=== PATIENT | female | born 1990 | race Caucasian/White ===

== ENCOUNTER → 2022-01-18 11:31 | Outpatient (CLI) | payer OTHER, SELFPAY ==
--- NOTE | ~2022-01-18 | US_ITS ---
EXAMINATION: US OB <= 14 weeks fetus DATE: 01/18/2022 12:00 INDICATION: Uncertain gestational dates. Cramping. TECHNIQUE: Real-time transabdominal obstetric ultrasound. FINDINGS: No prior studies for comparison. The uterus measures 12.5 x 6 x 6.8 cm. There is an intrauterine gestational sac, with pole iden tified. The crown rump length measures 3.1 cm, which correlates with a estimated gestational age of 10 weeks 0 days. heart tones are identified measuring 171 BPM. The right ovary is not visuali zed. The left ovary is unremarkable measuring 2.2 x 1.4 x 1.8 cm. IMPRESSION: 1. SL IUP with an EGA of 10 weeks, 0 days (EDC by current ultrasound of 08/16/2022). Reviewed, dictated and finalized at location A. IMPRESSION: 1. SL IUP with an EGA of 10 weeks, 0 days (EDC by current ultrasound of 08/16/19).
== END ==
PROVIDERS: PCP Advanced Practice Midwife; Visit Provider Advanced Practice Midwife
DX: Z34.91 Encounter for supervision of normal pregnancy, unspecified, first trimester (principal); Z3A.10 10 weeks gestation of pregnancy
CPT/HCPCS: 76801

== ENCOUNTER → 2022-03-18 13:51 | Outpatient (CLI) | payer OTHER, SELFPAY ==
--- NOTE | ~2022-03-18 | US_ITS ---
EXAMINATION: US OB /maternal detail DATE: 03/18/2022 14:51 INDICATION: Second trimester anatomic survey TECHNIQUE: Real-time ultrasound of the pelvis was performed. COMPARISON: None. FINDINGS: There is a single living fetus in transverse lie. The placenta is posterior and 5.6 cm from the inter nal cervical os. The cervical length is 5.2 cm. heart rate is 151 beats per minute (bpm). Feta l cardiac activity and movement are noted. The amniotic fluid index is subjectively normal. The following anatomy was identified as normal: 4 chamber heart 3 vessel cord cord insertion kidneys urinary bladder stomach spine diaphragm ventricles cisterna magna cerebellum The following biometric data were obtained: Biparietal diameter (BPD): 4.4 cm; head circumference (HC): 15.6 cm; abdominal circumference (AC): 13 .5 cm; femur length (FL): 2.9 cm. These measurements are concordant. Estimated weight is 264 g +/- 39 g, which correlates with the 50th percentile when 08/13/2022 is used as estimated date of delivery. As single measurements, these parameters are each equal to the following estimated gestational ages w ith ranges of +/- 2 standard deviations: BPD: 19 weeks 3 days +/- 1 weeks 5 days. HC: 18 weeks 4 days +/- 1 weeks 3 days. AC: 18 weeks 6 days +/- 2 weeks 0 days. FL: 19 weeks 0 days +/- 1 weeks 6 days. estimated gestational age based solely on measurements from this exam is 19 weeks 0 days +/- 1 weeks 2 days. IMPRESSION: 1. Single living fetus in transverse lie. 2. Estimated weight is 264 g +/- 39 g, which correlates with the 50th percentile when 08/13/2022 is used as estimated date of delivery. Reviewed, dictated and finalized at location D. IMPRESSION: 1. Single living fetus in transverse lie. 2. Estimated weight is 264 g +/- 39 g, which correlates with the 50th per centile when 08/13/2022 is used as estimated date of delivery.
== END ==
PROVIDERS: PCP Advanced Practice Midwife; Visit Provider Advanced Practice Midwife
DX: Z36.89 Encounter for other specified antenatal screening (principal)
CPT/HCPCS: 76805

== ENCOUNTER 2022-06-06 18:17 | Observation (INO) | payer OTHER, SELFPAY ==
[2022-06-06 18:33] VITALS: BP 127/79; PULSE 100; BMI 39.9
--- NOTE | 2022-06-08 09:38 | PM.OBTRLD ---
OB - Triage/Final Diagnosis Visit Information Reason for evaluation: other (vaginal discharge) Comments/Additional reasons for admission: I have assessed the risk for this patient, Natasha Brantley, and determined that she would benefit from observation care.
== END 2022-06-06 19:05 | disposition home or self-care (01) ==
PROVIDERS: Admitting Provider Obstetrics & Gynecology Gynecology; Visit Provider Obstetrics & Gynecology Gynecology
DX: O26.893 Other specified pregnancy related conditions, third trimester (principal); N89.8 Other specified noninflammatory disorders of vagina; Z3A.30 30 weeks gestation of pregnancy
CPT/HCPCS: 59025; G0378; G0379

== ENCOUNTER → 2022-06-07 15:01 | Outpatient (CLI) | payer OTHER, SELFPAY ==
--- NOTE | ~2022-06-07 | US_ITS ---
EXAMINATION: US OB follow up DATE: 06/07/2022 15:25 INDICATION: Size greater than dates. TECHNIQUE: Real-time transabdominal obstetric ultrasound. FINDINGS: Comparison to multiple prior studies sequentially, with oldest reviewed study dated 022. There is a single living fetus in vertex presentation. The placenta is posterior without placenta pr evia. cardiac activity and movement is noted with a heart rate of 163 beats per minute. T he amniotic fluid volume is normal. DIOR measures 14.6 cm. The following biometric data were obtained: BPD: 7.7mm corresponds to gestational age 30 weeks 6 days. Head circumference: 283mm corresponds to gestational age 31 weeks 0 days. Abdominal circumference: 263mm corresponds to gestational age 30 weeks 3 days. Femur length: 56mm corresponds to gestational age 29 weeks 3 days. Estimated weight: 1526grams +/- 229grams 29.1%.] IMPRESSION: 1. Single living intrauterine fetus in vertex presentation with an estimated gestational age of 30 w eeks 3 days by inititial dates. Appropriate interval growth. 2. Normal placenta. Reviewed, dictated and finalized at location A. TH AND SAFETY TECHNICIAN IMPRESSION: 1. Single living intrauterine fetus in vertex presentation with an estimated g estational age of 30 weeks 3 days by inititial dates. Appropriate interval fet al growth. 2. Normal placenta.
== END ==
PROVIDERS: PCP Advanced Practice Midwife; Visit Provider Advanced Practice Midwife
DX: O36.63X0 Maternal care for excessive fetal growth, third trimester, not applicable or unspecified (principal)
CPT/HCPCS: 76816

== ENCOUNTER 2022-08-13 15:36 | Inpatient (IN) | payer BC, SELFPAY ==
[2022-08-13] VITALS (98 sets, daily range): BP systolic 104–143; BP diastolic 67–105; PULSE 70–106; TEMP 36.6; O2SAT 84–100; BMI 40.6
--- NOTE | 2022-08-13 16:53 | WPDOBADMIT ---
Obstetrics - Admit Note Admission Note: record reviewed. No pertinent additions to the history and/or any subsequent changes in the physical findings that are not consistent with the expected course of the were found. Additions to the history and/or subsequent changes in the physical findings follow. None.
--- NOTE | 2022-08-13 16:53 | PM.OBPNLAB ---
Pain Control Date/time seen: 08/13/22 16:53 Pain control: tolerating well Comments: Having ctx q 3-4 minutes, increasing in intensity. Pelvic Exam Comments: 2-3 cm on last RN exam. Pt was 1cm in office yesterday. Contractions Monitor mode: External Contraction frequency: 3 Contraction pattern: Regular Contraction phase: Contraction Contraction intensity: Moderate Status status: Category l Comments: Baseline 135. Moderate variability with accelerations. Assessment and Plan Comments: Pt appears to be in early labor. Tolerating contractions well. Offered amniotomy and pt declines at this time. Plan for repeat SVE in one hour. Anticipate vaginal . Dr. Kraft updated on pt's progress.
--- NOTE | 2022-08-13 17:10 | LDADM ---
This patient, Natasha Brantley, was admitted to Labor/Delivery/Recovery 108 on 08/13/22 at 15:36. Plans for labor, pain management and were discussed with patient. Patient/family oriented to hospital policies and general routines including ID bracelet, bed and alarms, visiting hours, pain management, procedures, bathroom and other care routines, personal items, smoking policy, room service/diet and guest tray routines, security routines, and visiting hours. Patient/Family are encouraged to report perceived risks to care and to ask questions if they do not understand what they are told or what they should do. See OBIX for further documentation.
--- NOTE | 2022-08-13 17:19 | P.PNAN_ITS ---
Anes - Initial Pre Proc Eval Procedure: labor epidural Date/Time: 08/13/22 17:19 Surgeon: Tracey Kraft MD Pre Op Diagnosis: labor pain Pre Op Diagnosis: Labor Patient Data Age: 31 Gender: F Height: 1.6 m Weight: 104 kg Last Vital Signs O2 Del Method Room Air 08/13/22 17:09 Allergies Allergy/AdvReac Type Severity Reaction Status Date / Time No Known Allergies Allergy Verified 07/22/22 14:40 Home Medications Medication Instructions Recorded Confirmed Type bupropion HCl 150 mg tablet,12 hr 150 mg PO DAILY 07/22/22 07/22/22 History sustained-release cholecalciferol (vitamin D3) 1,250 1,250 mcg PO WEEKLY 07/22/22 07/22/22 History mcg (50,000 unit) tablet famotidine 20 mg tablet (Pepcid) 20 mg PO DAILY 07/22/22 08/13/22 History ferrous sulfate 325 mg (65 mg 325 mg PO BID 07/22/22 07/22/22 History iron) tablet prenat.vits,katie,efa-dlso-izpre 1 tablet PO DAILY 07/22/22 07/22/22 History Patient hx anesthesia problems: none Family hx anesthesia problems: none Results Review: All pre-operative results and documents have been reviewed as part of the pre- operative evaluation. [facility] Past Medical History Medical History (Updated 08/13/22 @ 17:20 by Jonatan Ornelas DO) Anemia Anxiety Depression Psoriasis Social History Social History Smoking status: Never smoker Substance use: never Lack of Transportation: No Lack of Food: Never True Current Housing: I Have Housing Concerned About Future Housing: No Difficulty Paying Gas/Electric Bills: No Difficulty Paying for Meds: No Currently Unemployed: No Education: Master's Degree or Higher Difficulty w/ Childcare or Family Care: No Spiritual care concerns: No Anes - Eval Final PreProcedure Day of Procedure 08/13/22 17:19 Patient weight: morbidly obese ASA classification: III Anesthetic plan: proceed Anesthesia type and monitoring: regional epidural and standard monitoring Results Review: All pre-operative results and documents have been reviewed as part of the pre- operative evaluation. Informed Consent: The patient's anesthetic plan and its attendant risks and benefits were discussed with the patient/family/POA. Questions were solicited and answers provided to the satisfaction of the patient/family/POA.
[2022-08-13] MEDS: fentaNYL CITRATE INJ (*CRX) 100 MCG/2 ML VIAL 50 MCG IV PUSH (17:59)
[2022-08-13 18:03] LABS: Basophils Percent Auto 0.3 % (0.2-1.2); Eosinophils Absolute Auto 0.1 K/mm3 (0-0.3); Eosinophils Percent Auto 0.6 % (0-4.4); Hematocrit 38.8 % (37.0-47.0); Hemoglobin 12.8 g/dL (12.0-15.0); Immature Granulocyte Absolute 0.05 K/mm3 (0.00-0.031); Immature Granulocyte Percent A 0.4 % (0-0.5); Lymphocytes Absolute Auto 2.13 K/mm3 (0.9-3.2); Lymphocytes Percent Auto 16.4 % (18.3-44.2); Mean Corpuscular Volume 78.9 fl (80-100); Mean Platelet Volume 9.2 fl (7.4-10.4); Monocytes Absolute Auto 0.7 K/mm3 (0.1-0.6); Monocytes Percent Auto 5.7 % (2.6-8.5); Neutrophils Percent Auto 76.6 % (45.5-73.1); Platelet Count Result 280 k/mm3 (150-375); Red Blood Count 4.92 M/mm3 (4.2-5.4); Red Cell Distribution Width 14.1 % (11.5-14.5)
[2022-08-13] MEDS: LACTATED RINGERS 1,000 ML 999 ML IV CONT (18:45)
[2022-08-13] MEDS: LACTATED RINGERS 1,000 ML 125 ML IV CONT (19:58)
[2022-08-14] VITALS (297 sets, daily range): BP systolic 106–164; BP diastolic 59–123; PULSE 31–144; RESP 16–18; TEMP 36.1–37.7; O2SAT 84–100
[2022-08-14] MEDS: LACTATED RINGERS 1,000 ML 125 ML IV CONT ×2 (01:46→09:34)
--- NOTE | 2022-08-14 07:36 | PM.OBPNLAB ---
Pain Control Date/time seen: 08/14/22 07:30 Pain control: tolerating well and epidural Pelvic Exam Dilation (cm): 6 (6.5) Effacement (%): 80 station: -2 Amniotic membrane status: Ruptured Contractions Monitor mode: External Contraction pattern: Irregular Contraction phase: Contraction Contraction intensity: Moderate Status status: Category l Assessment and Plan Plan: begin patient augmentation Comments: Called and spoke with RN at 0540 this am. Pt had been 6-7cm with no change since last SVE. CNM recommended pitocin be started. CNM to bedside at 0720. Plan of care discussed with pt. Cat 1 tracing. Ctx q 8-10 minutes. Discussed lack of cerivcal change and the need for more contractions. Pt desires to reposition to left side for 30 minutes to see if ctx increase in frequency. If ctx have not increased in frequency by 0800, will start pitocin. Pt agreeable to this plan. Dr. Kraft updated on pt status.
[2022-08-14] MEDS: FAMOTIDINE 20 MG/2 ML VIAL IV PUSH (07:39)
[2022-08-14] MEDS: OXYTOCIN 30 UNITS/NS 500 ML 30 UNITS/500 ML BAG IV CONT (08:17)
[2022-08-14 09:52] LABS: Rapid Plasma Reagin Non-Reactive (NonReactive)
--- NOTE | 2022-08-14 10:38 | PM.OBPNLAB ---
Pain Control Date/time seen: 08/14/22 10:35 Pain control: tolerating well and epidural Pelvic Exam Dilation (cm): 8 (6.5) Effacement (%): 90 station: -1 Amniotic membrane status: Ruptured Contractions Monitor mode: External Contraction pattern: Irregular Contraction phase: Contraction Contraction intensity: Moderate Status status: Category ll Comments: Recent prolonged FHT deceleration. Tracing with normal baseline and moderate variability now. Assessment and Plan Comments: Discussed plan of care with Natasha. Recommend IUPC to better facilitate pitocin titration. Pt agreeable. IUPC inserted and returned with clear amniotic fluid. Anticipate vaginal .
[2022-08-14] MEDS: ACETAMINOPHEN 500 MG TABLET 1000 MG PO (12:18)
[2022-08-14] MEDS: OXYTOCIN 30 UNITS/NS 500 ML 30 UNITS/500 ML BAG 125 UNITS IV CONT (18:12)
--- NOTE | 2022-08-14 18:23 | W.PM.PROC2 ---
Procedure Note - Detailed Date of Procedure 08/14/22 Pre-op Diagnosis partial 3rd degree laceration Post-op Diagnosis Same Procedure Performed laceration repair Surgeon Tracey Kraft MD Anesthesia Local and Epidural Findings partial 3rd degree laceration Description of Procedure I was called by the RN to evaluate for possible third-degree laceration during delivery performed by Gloria Andujar. The right portion of the sphincter appears to be partially torn and retracted. The external skin incision extends to the anal verge but by rectal exam there is no rectal mucosa involved. The 1% lidocaine is injected along the skin edges and into the sphincter. The retracted portion of the right sphincter was grasped with an Allis clamp and incorporated into the visible fascia anteriorly. The left sphincter was grasped with an Allis clamp. The sphincter was reinforced with 4 sutures of 0 Vicryl in an interrupted manner. The vaginal and perineal laceration was closed using 3-0 Vicryl in the usual manner. Estimated Blood Loss 25 Drains No Packing No Pathology None sent Complications No immediate complications Condition Stable Disposition Floor
--- NOTE | 2022-08-14 18:34 | P.PCNOB_ITS ---
OB - Delivery Note Procedure Delivery date: 08/14/22 Procedure: Induction method: None Delivery augmentation: Pitocin Delivery monitor: External FHT, External Uterine and Internal Uterine Route of delivery: Episiotomy description: None Laceration Description: Perineal - 3rd Degree Delivery repair: vicryl Specimen: No Quantitative Blood Loss (ml): 250 Anesthesia type: Epidural Disposition: Floor Narrative: Arrived in labor. Had spontaneous rupture of membranes on Labor and delivery. Progressed to 6-7 cm and had no further cervical change. Was augmented with Pi tocin and progressed to complete dilation. Began pushing with contractions. Patient pushed in multiple positions and eventually repositioned to hands and knees. She quickly brought the head to a crown and delivered in the straight OA position. There was good restitution followed by delivery of the anterior posterior shoulder. She was repositioned to low Shane's and if infant was placed skin to skin. After 3 minutes of life the cord was doubly clamped and cut. Cord blood and cord gases were obtained as well as a cord segment. There was spontaneous delivery of the placenta. A third-degree laceration was noted and Dr. Kraft was called for assistance. arrived and repaired the third- degree laceration. All delivery counts were correct. Patient is skin to skin with baby at the completion of this note. No infant weight available at this time. [place] Baby Date of : 08/14/22 Time of : 17:33 Weeks of gestation at delivery: 40 Infant gender: Male presentation: vertex position: Other (OA) Placenta delivery description: Spontaneous Cord Vessel Description: 3 Vessels, Clamped/Cut and Delayed Cord Clamping score one minute: 9 score five minutes: 9
--- NOTE | 2022-08-14 18:44 | PM.OBDSVD ---
DS: Admitting Diagnosis Discharge Date 08/16/2022 Admitting Diagnosis labor at term DS: Discharge Diagnosis Discharge Diagnosis (1) (normal spontaneous vaginal delivery): Code(s): O80 - Encounter for full-term uncomplicated delivery Status: Acute (2) Mother currently breast-feeding: Code(s): Z39.1 - Encounter for care and examination of lactating mother Status: Acute (3) Obstetric vaginal laceration with third degree perineal laceration: Code(s): O70.20 - Third degree perineal laceration during delivery, unspecified Status: Acute OB - DS: Summary OB Procedures : Ultrasound OB Procedures Intrapartum: Spontaneous Vag Delivery OB Procedures: : None Peripartum Data Delivery Method: Natural Vaginal Laceration Description: Vaginal - 3rd Degree Episiotomy description: None complications: none Status at Discharge Overall status at discharge: patient is progressing back to baseline Time Spent with Patient Time attestation: Total time spent providing and/or coordinating discharge services: DS: Data Data Completed and Pending Labs on day of discharge: Labs from last 24 hours 08/13/22 08/13/22 17:02 17:02 RPR Non-reactive Blood Type O Positive Antibody Screen Negative Discharge Plan Discharge Attending physician on discharge: Tracey Kraft Consulting providers: Jonatan Ornelas Discharging Clinician: Tracye Kraft Anticipated Discharge Date/Time: 08/16/22 07:46 Patient Disposition: Home, Self-Care Activity: may shower Diet: as tolerated Discharge Instructions: Continue taking your vitamin and any other supplements as previously directed (Examples: Iron, Vitamin D). You may take Tylenol 1000mg over the counter every 6 hours as needed for pain. Do not exceed 4000mg of Tylenol daily. You may continue using tucks pads and dermoplast spray if needed for a few more days. Dr. Kraft had also discussed with patient taking Naproxen as an option and the patient is aware of that plan. Education: Mom and Baby Guide Given to: Mother Follow-Up: Call your delivering provider's office for an appointment to be seen in: See OB in 1 week for blood pressure check and again in 6 weeks for post visit. Mom and baby should come to the [facility] for the follow-up appointment. Appointment Date/Time: August 19, 2022 at 11:00 am What to expect at your follow-up visit: Blood Pressure Check Call [phone] if you are unable to keep your appointment time. BREAST CARE: * Wear a snug supportive bra. * For engorgement discomfort: Breast Feeding: * Apply warm moist washcloths * Express milk as needed to relieve engorgement * Wear loose clothing * For sore nipples: * Identify correct latch-on * Apply warm moist washcloths before and after nursing * Air dry nipples after nursing * May apply Lansinoh cream to nipples EPISIOTOMY/PERINEAL CARE: * Until bleeding stops, use your oz bottle after urinating * Change your pad frequently throughout the day * You may take sitz baths several times a day (fill your bathtub with warm water and soak for 20 minutes.) Do NOT bathe in the water * No tub baths until seen by your physician - You may shower ACTIVITY: * Rest as much as possible. * Do not exercise or lift anything heavier than your baby (such as laundry or other children.) * Avoid stairs or driving as much as possible. * Do not put anything into the vagina. No douching, tampons, or sexual activity until seen by physician. NOTIFY PHYSICIAN IF YOU HAVE ANY QUESTIONS OR IF ANY OF THE FOLLOWING SYMPTOMS OCCUR: * If your episiotomy becomes red, swollen, or more painful than what you have experienced in the hospital. * If your vaginal bleeding becomes foul smelling. * If your vaginal bleeding becomes more
[2022-08-14] MEDS: LIDOCAINE HCL 1% PF 30 ML VIAL (18:59)
[2022-08-14] MEDS: ACETAMINOPHEN 325 MG TABLET 650 MG PO (19:16)
[2022-08-14] MEDS: WITCH HAZEL 40 PADS 1 PAD TOPICAL (20:13)
[2022-08-14] MEDS: BENZOCAINE 20% AER SPR (*SP) 56 GM CAN 1 SPRAY TOPICAL (20:13)
--- NOTE | 2022-08-14 20:45 | PC.NURSE ---
Report given to , RN
--- NOTE | 2022-08-14 20:52 | OBPPTRN ---
Patient transferred to post room #281 via W/C. Support person present. Oriented to unit, room, information board, rooming in, admission packet and security measures. Patient verbalizes understanding.
[2022-08-15] MEDS: HYDROcodone/acetaminophen (*CRX) 10-325 MG TABLET 1 TAB PO ×6 (04:10→21:35)
[2022-08-15 04:20] VITALS: BP 133/89; PULSE 81; RESP 18; TEMP 36.9; O2SAT 99
[2022-08-15 07:43] LABS: Hematocrit 32.1 % (37.0-47.0); Hemoglobin 10.3 g/dL (12.0-15.0)
[2022-08-15] MEDS: DOCUSATE SODIUM 100 MG CAPSULE PO ×2 (07:56→16:08)
--- NOTE | 2022-08-15 07:56 | PM.OBPNVD ---
OB - PN: Subj Subjective Date/time seen: 08/15/22 07:50 Patient comments: other (perineal pain) [place] baby status: doing well and nursing well [place] feeding status: exclusively breast feeding Narrative: Natasha reports nursing very well. Her bleeding is small, no clots. Minimal cramping. She is feeling moderate discomfort to her perineum that is not controlled with Tylenol alone. Getting [place] PRN OB - PN: Obj Data Labs 08/15/22 07:27 Labs: Laboratory Results - last 24 hr 08/13/22 08/15/22 17:02 07:27 Hgb 10.3 L Hct 32.1 L RPR Non-reactive OB - PN A/P Plan day: 1 Plan: routine care Time Spent With Patient Time: Total time spent is greater than 50% in coordination of care (as documented) at patient's floor/unit and/or counseling patient: Review of Systems Review of Systems: All systems reviewed & are unremarkable except as noted in HPI and below Exam Narrative: Alert and oriented. Mood is pleasant and cooperative. Urinating without difficulty. Denies passing any large clots. Perineum with minimal edema. Fundus firm and below umbilicus. Const: General: cooperative, healthy appearing, no acute distress and alert Orientation/consciousness: patient oriented x3 Limitations: no limitations Resp: Effort & Inspection: normal respiratory effort Auscultation: clear to auscultation bilaterally Cardio: Rate: regular rate GI: Inspection: normal to inspection Neuro: General: patient oriented x3 Extrem: General: normal to inspection Psych: Appearance: grossly normal Mental Status: mental status grossly normal Affect: normal affect Thought process: Normal thought process present
[2022-08-15] MEDS: FAMOTIDINE 20 MG TABLET PO (07:57)
[2022-08-15] MEDS: FERROUS SULFATE 324 MG TABLET PO ×2 (07:57→16:20)
[2022-08-15] MEDS: buPROPion HCL SR (12 HR) 150 MG TAB PO (07:58)
[2022-08-15] MEDS: MULTIVIT/MIN/PREN/FOL AC/IRON TABLET 1 TAB PO (07:58)
[2022-08-15] MEDS: KETOROLAC 30 MG/ML VIAL (*BKC) IV PUSH ×3 (07:59→21:35)
[2022-08-15 10:05] VITALS: BP 134/91; PULSE 86; RESP 17; TEMP 36.6; O2SAT 100
--- NOTE | 2022-08-15 10:39 | PC.NURSE ---
Addendum entered by Coty Hernandez RN 08/15/22 10:49: From [id number] Infant was stimulated to wake to breastfeed. RN returned at 0903 to check for or perform a blood sugar. Mother had independently latched at 0855 on the right breast. After five minutes had stopped so mother placed infant skin to skin. RN assisted mother with effectively on the left breast at 0905. Original Note: [id number] Introductions were made, then consulted with patient to assess needs related to . Mother led the conversation with her?plans to feed?her infant and the?experience so far. Resources provided for inpatient and outpatient services with mom/baby guide. Mother voiced understanding of information and requests assistance related to stimulating to wake and breastfeed. Infant is sleepy and reluctant to breastfeed, then has a stool after spoon feeding 1/4 tsp of colostrum. Circ care was given as this is the first stool since the circumcision. While changing the diaper the infant has copious amounts of meconium stool. Encouraged understanding of the benefits of skin to skin (demonstrating unwrapping and placing upright on her chest), stimulating with massage touch, hand expression, changing positions to encourage wakefulness, how to watch for early feeding cues, responsive feeding, feeding on demand (aiming for 8-12 times in 24 hours, about every 2-3 hours), milk production, building/maintaining a milk supply, duration of feeding, signs of adequate intake/output and how to record on the feeding sheet. Mother works well with her with encouragement and education. Reviewed positioning and ear, shoulder, hip alignment, supporting the breast to facilitate a deep latch, asymmetrical latch (off-center), leading with the chin with a big, open, wide gape and body close to mother. Infant latched optimally to the left breast in football position. Education given to mother of how to visualize suck/swallow ratios and listen for drinking at the breast. Infant was able to maintain latch without discomfort to mother with swallowing visualized and heard. Nipple care reviewed with optimal latch and good positioning. Reminding mother of comfort measures of healing with a warm and wet washcloth to rinse breast, then leave open to air-dry as needed. Reviewed good handwashing when or touching the breast/nipples to prevent infection. Resources used to facilitate learning were used with the [visual handouts/QR codes/ tool/mom and baby guide]. Mother voiced understanding of skin to skin, stimulating with massage touch, responsive feedings, hand expressed colostrum, talking to infant to encourage if it has been 2 -2.5 hours since the start of the last , to call if does not latch, or if there is discomfort with . Resources provided for inpatient/outpatient with the mom/baby guide. Mother voiced understanding of information, demonstrated learning and will call if there is a request for assistance. Reported to the primary RN.
[2022-08-15 12:00] VITALS: BP 128/83; PULSE 94; RESP 16; TEMP 37.2; O2SAT 98
[2022-08-15 16:10] VITALS: BP 134/89; PULSE 73; RESP 18; TEMP 36.6
[2022-08-15 21:35] VITALS: BP 141/84; PULSE 81; RESP 18; TEMP 36.9; O2SAT 97
[2022-08-16] MEDS: HYDROcodone/acetaminophen (*CRX) 10-325 MG TABLET 1 TAB PO ×3 (02:41→12:15)
--- NOTE | 2022-08-16 07:45 | PM.OBPNVD ---
OB - PN: Subj Subjective Date/time seen: 08/16/22 07:45 Patient comments: no complaints and pain well controlled baby status: doing well OB - PN: Obj Data Labs 08/15/22 07:27 OB - PN A/P Plan day: 2 Plan: routine care, discharge home, follow up 6 weeks and other (plans condoms for bc considering IUD) Comments: No PIH Sx. Time Spent With Patient Time: Total time spent is greater than 50% in coordination of care (as documented) at patient's floor/unit and/or counseling patient: Exam : Bimanual exam- vagina & uterus: other (Uterus firm, nt @U)
[2022-08-16] MEDS: KETOROLAC 30 MG/ML VIAL (*BKC) IV PUSH (07:50)
[2022-08-16] MEDS: buPROPion HCL SR (12 HR) 150 MG TAB PO (07:51)
[2022-08-16] MEDS: FAMOTIDINE 20 MG TABLET PO (07:51)
[2022-08-16] MEDS: MULTIVIT/MIN/PREN/FOL AC/IRON TABLET 1 TAB PO (07:51)
[2022-08-16] MEDS: DOCUSATE SODIUM 100 MG CAPSULE PO (07:51)
[2022-08-16 08:26] VITALS: BP 128/81; PULSE 73; RESP 18; TEMP 36.8; O2SAT 100
--- NOTE | 2022-08-16 10:30 | PC.NURSE ---
Per mother, unable to make follow up appointment @ [facility] on 08/17/22 @ 0800, appt changed to 08/19 @ 1100.
--- NOTE | 2022-08-16 10:58 | PC.NURSE ---
[id number] Mother led the conversation with her experience, plan to feed her so far and demonstrated her ability to independently latch infant optimally without discomfort to the left breast using football positioning without pain. Reminded parents to use good handwashing technique to prevent infection. Mother is feeding appropriately for growth of infant and understands stimulating infant to eat if needed. Infant has had appropriate feedings in the last 24 hours meets the outcomes for weight, output and jaundice at this time. Mother states she is confident to continue effectively breastfeed her at home, when to call for assistance and denies any additional assistance or education at this time. Reinforced understanding of milk production, transition of milk, signs of adequate intake, transition of stool, prevention/relief of engorgement, responsive watching for feeding cues, the different methods of stimulating to breastfeed 2-3 hours after the start of the last feeding, community resources, medication information reviewed per [employer] and when to call a provider using the resource of the mom and baby guide/[facility] website. Mother voiced understanding of the education shared. Reported to the primary RN.
--- NOTE | 2022-08-16 12:21 | PC.NURSE ---
Patient to view the discharge video [facility], The First Two Weeks online. Patient was given the opportunity and encouraged to ask questions. Patient verbalized understanding of information shared and has been given the mother/baby guide for home reference.
--- NOTE | 2022-08-16 13:00 | PC.NURSE ---
Patient had requested previously to be able to take her placenta home at discharge, consents signed prior to arrival to post floor. Placenta Release form was signed today at discharge and patient was given her placenta.
[2022-08-19 10:59] VITALS: BP 155/94; PULSE 72; RESP 18; TEMP 36.7; O2SAT 99
== END 2022-08-16 13:00 | disposition home or self-care (01) | DRG 768 ==
LOC: ANHLDR 08-14 18:46 → ANHOB2 08-16 07:47 → ANHLDR 08-19 10:15 → ANHOB2 08-19 10:15
PROVIDERS: Admitting Provider Obstetrics & Gynecology Gynecology; PCP Nurse Practitioner Family; Referring Provider Advanced Practice Midwife; Visit Provider Advanced Practice Midwife
DX: O99.344 Other mental disorders complicating childbirth (principal); Z37.0 Single live birth; O70.20 Third degree perineal laceration during delivery, unspecified; F32.A Depression, unspecified; F41.9 Anxiety disorder, unspecified; O36.8330 Maternal care for abnormalities of the fetal heart rate or rhythm, third trimester, not applicable or unspecified; Z3A.40 40 weeks gestation of pregnancy
CPT/HCPCS: 36415; 85014; 85018; 85025; 86592; 86850; 86900; 86901; A9270; J1885; J2590; J2795; J3010; J7120

== ENCOUNTER 2022-08-19 11:58 | Outpatient (CLI) | payer BC, SELFPAY ==
[2022-08-19 12:12] VITALS: BP 155/99; PULSE 68
[2022-08-19 12:30] VITALS: BP 164/95; PULSE 68
[2022-08-19 12:34] LABS: Basophils Percent Auto 0.2 % (0.2-1.2); Eosinophils Absolute Auto 0.2 K/mm3 (0-0.3); Eosinophils Percent Auto 2.2 % (0-4.4); Hematocrit 36.7 % (37.0-47.0); Hemoglobin 11.8 g/dL (12.0-15.0); Immature Granulocyte Absolute 0.05 K/mm3 (0.00-0.031); Immature Granulocyte Percent A 0.6 % (0-0.5); Lymphocytes Absolute Auto 1.96 K/mm3 (0.9-3.2); Lymphocytes Percent Auto 22.3 % (18.3-44.2); Mean Corpuscular HGB Conc 32.2 g/dl (32-36); Mean Corpuscular Hemoglobin 26.3 pg (26-34); Mean Corpuscular Volume 81.7 fl (80-100); Mean Platelet Volume 8.6 fl (7.4-10.4); Monocytes Absolute Auto 0.6 K/mm3 (0.1-0.6); Monocytes Percent Auto 6.4 % (2.6-8.5); Neutrophils Percent Auto 68.3 % (45.5-73.1); Platelet Count Result 319 k/mm3 (150-375); Red Blood Count 4.49 M/mm3 (4.2-5.4); White Blood Count 8.8 K/mm3 (4.5-10.0)
[2022-08-19 12:45] VITALS: BP 158/85; PULSE 61
[2022-08-19 12:48] LABS: Alanine Aminotransferase 24 U/L (6-35); Albumin Level 3.4 g/dL (3.5-5.1); Alkaline Phosphatase 122 U/L (38-126); Anion Gap 4 mmol/L (8-16); Aspartate Amino Transferase 27 U/L (14-36); Bilirubin,Total 0.6 mg/dL (0.2-1.3); Blood Urea Nitrogen 8 mg/dL (7-17); Calcium 8.8 mg/dL (8.4-10.2); Carbon Dioxide 28 mmol/L (22-30); Chloride 109 mmol/L (98-107); Estimated Glomerular Filt Rate > 60; Glucose 85 mg/dL (65-110); Potassium 4.2 mmol/L (3.4-5.0); Sodium 141 mmol/L (137-145); Uric Acid 5.3 mg/dL (2.5-7.5)
[2022-08-19 13:01] VITALS: BP 155/81; PULSE 59
--- NOTE | 2022-08-19 13:05 | PC.NURSE ---
1305 called Amber Andujar CNM reported BP and lab result. discharge order received with BP monitoring. follow up in two days
== END 2022-08-19 13:15 | disposition home or self-care (01) ==
LOC: ANHOBOP 12:03 → ANHOBPP 12:04
PROVIDERS: Advanced Practice Midwife; PCP Nurse Practitioner Family; Visit Provider Obstetrics & Gynecology Gynecology
DX: O99.891 Other specified diseases and conditions complicating pregnancy (principal); R03.0 Elevated blood-pressure reading, without diagnosis of hypertension
CPT/HCPCS: 36415; 80053; 84550; 85025; 99199

== ENCOUNTER → 2022-12-16 12:41 | Outpatient (CLI) | payer BC, SELFPAY ==
--- NOTE | ~2022-12-16 | US_ITS ---
EXAMINATION: US pelvic complete w TV DATE: 12/16/2022 13:26 INDICATION: Verify IUD placement Comparison:06/07/2022 TECHNIQUE: Multiple transabdominal and endovaginal sonographic images of the pelvis performed. FINDINGS: The uterus measures 4.4 x 2.7 x 3.5 cm. The endometrial complex measures 0.12 cm. The IUD i s not identified. The right ovary measures 2.7 x 1.1 x 2.3 cm and the left ovary is not visualized. There are follicula r changes in the right ovary. There is no free fluid in the pelvis. There are no abnormal masses seen on either side. IMPRESSION: 1. Unremarkable pelvic ultrasound. IUD not visualized. Reviewed, dictated and finalized at location []
== END ==
PROVIDERS: PCP Nurse Practitioner; Visit Provider Nurse Practitioner
DX: T83.32XA Displacement of intrauterine contraceptive device, initial encounter (principal)
CPT/HCPCS: 76830; 76856

== ENCOUNTER → 2022-12-18 07:40 | Outpatient (CLI) | payer BC, SELFPAY ==
--- NOTE | ~2022-12-18 | XR_ITS ---
XR abdomen/kub 1V 12/19/2022 11:42 INDICATION: Missing IUD strings. TECHNIQUE: KUB COMPARISON: No prior studies for comparison. FINDINGS: Bowel gas pattern is normal. There is an IUD present in the pelvis. There is no evidence of free air, mass, organomegaly, ascites or obstruction. Moderate colonic fecal loading. No abnormal ca lculi are seen. The bones appear intact. IMPRESSION: 1: No acute abdominal abnormality identified. Reviewed, dictated and finalized at location []
== END ==
PROVIDERS: PCP Obstetrics & Gynecology Gynecology; Visit Provider Obstetrics & Gynecology Gynecology
DX: T83.32XA Displacement of intrauterine contraceptive device, initial encounter (principal)
CPT/HCPCS: 74018

== ENCOUNTER 2022-12-30 00:11 | Day surgery (SDC) | payer BC, SELFPAY ==
[2022-12-25 15:50] VITALS: BMI 37.2
--- NOTE | 2022-12-25 15:54 | PC.NURSE ---
Report to the Outpatient Waiting Room, entrance under the green pavilion located off [facility], at time 1230 on date 12/30/22. Planned Procedure Time: 1430. Time changes happen often and if your time is changed the preop area will call you the afternoon before. - You and your visitor will be asked to self-screen and do not enter if you have any COVID symptoms. - A mask is optional within the hospital at this time. Patients may have clear liquids (water, carbonated beverages, clear teas, apple juice) until 3 hours prior to surgery with a maximum of 20 ounces. - No food from midnight until time of surgery Take the following medications with a SIP of water the morning of surgery: BUPROPION, ESCITALOPRAM DO NOT STOP ANY OF YOUR OTHER PRESCRIPTION MEDICATIONS PRIOR TO SURGERY ?EXCEPT THE FOLLOWING Medications to discontinue per physician: VITAMINS/SUPPLEMENTS Date to take last dose: 12/26/22 Please no make-up, nail greenlandic, hairspray, perfume, deodorant, or body powder the day of surgery. No jewelry (including any body piercings) or valuables the day of surgery, leave them at home. Please take a shower or bath the night before, or the morning of, surgery with an antibacterial soap. Wear comfortable, loose fitting clothing. - Jewelry must be removed prior to entering the operating room. Rings and piercings that are not removed may be cut off. - The hospital will not accept responsibility for valuables. - Please leave all valuables, including medications, at home the day of surgery. If you are going home after surgery, a licensed front end loader driver must drive you home. - NO public transportation without another adult if you receive anesthesia. - We recommend that an adult stay with you for 24 hours following discharge. - We also recommend that you do not drive, make important decision, drink alcoholic beverages, or take any drugs that were not prescribed by your health care provider for at least 24 hours after your discharge time. Follow any additional instructions given to you from your surgeon. If you or anyone in your household have experienced Covid symptoms in the past week, please notify your surgeon or the nurse liaison at the phone number below for possible testing. Telephone instructions given to PT - WILLAM GUZMÁN and asked if any additional questions and then verbalized understanding. Patient advised to call surgeon office or pre surgery nurse liaison [phone] if any additional questions.
[2022-12-30] VITALS (9 sets, daily range): BP systolic 99–128; BP diastolic 73–90; PULSE 52–87; RESP 10–18; TEMP 36.2; O2SAT 98–100
--- NOTE | 2022-12-30 09:33 | WPDHPUPDATE1 ---
History and Physical Update Update Date/Time: 12/30/22 09:33 History and Physical has been reviewed, including an updated exam of the patient. There are NO changes in the patient's condition. Risks, benefits, and alternatives have been discussed and questions answered. Patient agrees to proceed with procedure.
--- NOTE | 2022-12-30 09:33 | PM.HPGS ---
History of Present Illness History of Present Illness Consent: Risks, benefits, and alternatives have been discussed and questions answered. Patient agrees to proceed with procedure. Chief complaint: malpositioned IUD Narrative: Natasha Brantley is a 32 year old female with a malpositioned IUD. Patient presented for her 6 week follow-up and no IUD strings were found. Pelvic ultrasound does not show an obvious IUD in the endometrium. KUB was performed and the IUD was noted in the pelvis. It was recommended to proceed with hysteroscopic evaluation to see if IUD is in the endometrium and if present to remove it. If the IUD is not in the uterus, the plan is to proceed with laparoscopy with the C-arm as needed to find IUD intra-abdominally. Risks of infection, bleeding, perforation, and injury to internal organs is reviewed. In addition the small possibility of needing to do an exploratory laparotomy for IUD cannot be found laparoscopically was discussed. Patient voices understanding and agrees to proceed. Review of Systems Review of Systems: not repeated day of surgery; patient states no changes in status [facility] Past Medical History Medical History (Updated 12/30/22 @ 09:36 by Tracey Kraft MD) Anemia Anxiety Depression (normal spontaneous vaginal delivery) Psoriasis Surgical History Surgical History (Updated 12/30/22 @ 09:36 by Tracey Kraft MD) History of tonsillectomy Social History Social History Smoking status: Never smoker Alcohol intake: current Drinks per week: 1 Substance use: never Substance use type: does not use Lack of Transportation: No Lack of Food: Never True Current Housing: I Have Housing Concerned About Future Housing: No Difficulty Paying Gas/Electric Bills: No Difficulty Paying for Meds: No Currently Unemployed: No Education: Master's Degree or Higher Difficulty w/ Childcare or Family Care: No Living arrangements: with family Spiritual care concerns: No Meds Home Medications and Allergies Home Medications Medication Instructions Recorded Confirmed Type bupropion HCl 150 mg tablet,12 hr 150 mg PO DAILY 12/25/22 12/25/22 History sustained-release escitalopram oxalate 10 mg tablet 10 mg PO DAILY 12/25/22 12/25/22 History ferrous sulfate 325 mg (65 mg 325 mg PO DAILY 12/25/22 12/25/22 History iron) tablet (Iron (ferrous sulfate)) vitamins no.144-folic 1 tablet PO DAILY 12/25/22 12/25/22 History acid 400 mcg chewable tablet () Allergies Allergy/AdvReac Type Severity Reaction Status Date / Time No Known Allergies Allergy Verified 12/25/22 15:48 Exam Const: General: healthy appearing and alert Orientation/consciousness: patient oriented x3 Resp: Effort & Inspection: normal respiratory effort GI: GI Palp: Yes Soft to palpation, No Tenderness to palpation present (GI) and No Palpable mass present : External Female Exam: normal external appearance Speculum Exam - Vagina: normal appearance of the vagina and normal vaginal discharge Speculum Exam - Cervix: normal appearance of the cervix Bimanual exam- vagina & uterus: uterine size normal and consistency normal Bimanual Exam- Adnexa, other: normal adnexae and No adnexal tenderness Neuro: General: patient oriented x3 Assessment and Plan Assessment and plan (1) Malpositioned IUD: Code(s): T83.32XA - Displacement of intrauterine contraceptive device, initial encounter Status: Acute Assessment and Plan: plan to proceed with hysteroscopy possible laparoscopy to remove IUD
[2022-12-30] MEDS: ACETAMINOPHEN 500 MG TABLET 1000 MG PO (12:47)
[2022-12-30] MEDS: LACTATED RINGERS 1,000 ML 30 ML IV CONT ×2 (12:55→14:36)
[2022-12-30] MEDS: KETOROLAC 15 MG/ML VIAL (*BKC) IV PUSH (13:00)
[2022-12-30 13:06] LABS: Hemoglobin 13.2 g/dL (12.0-15.0)
--- NOTE | 2022-12-30 13:28 | WPDANESEPPF ---
Anes - Initial Pre Proc Eval Procedure: Operation Date: 12/30/22 14:30 Proposed Procedures p Hysteroscopy for Intrauterine Device Removal, Possible Laparoscopy - Tracey Kraft MD Date/Time: 12/30/22 13:28 Surgeon: Tracey Kraft MD Pre Op Diagnosis: malpositioned IUD Patient Data Age: 32 Gender: F Height: 1.6 m Weight: 93.2 kg Last Vital Signs Temp 36.2 C L 12/30/22 13:04 Pulse 77 12/30/22 13:04 Resp 16 12/30/22 13:04 BP 119/75 12/30/22 13:04 Pulse Ox 100 12/30/22 13:04 O2 Del Method Room Air 12/30/22 13:04 Allergies Allergy/AdvReac Type Severity Reaction Status Date / Time No Known Allergies Allergy Verified 12/30/22 12:33 Home Medications Medication Instructions Recorded Confirmed Type bupropion HCl 150 mg tablet,12 hr 150 mg PO DAILY 12/25/22 12/30/22 History sustained-release escitalopram oxalate 10 mg tablet 10 mg PO DAILY 12/25/22 12/30/22 History ferrous sulfate 325 mg (65 mg 325 mg PO DAILY 12/25/22 12/30/22 History iron) tablet (Iron (ferrous sulfate)) vitamins no.144-folic 1 tablet PO DAILY 12/25/22 12/30/22 History acid 400 mcg chewable tablet () Laboratory Tests 12/30/22 12:48 Hgb 13.2 g/dL (12.0-15.0) Hct 42.0 % (37.0-47.0) Patient hx anesthesia problems: none Family hx anesthesia problems: none Results Review: All pre-operative results and documents have been reviewed as part of the pre-operative evaluation. [facility] Past Medical History Medical History Anemia Anxiety Depression (normal spontaneous vaginal delivery) Psoriasis Surgical History Surgical History History of tonsillectomy Social History Social History Smoking status: Never smoker Alcohol intake: current Drinks per week: 1 Substance use: never Substance use type: does not use Lack of Transportation: No Lack of Food: Never True Current Housing: I Have Housing Concerned About Future Housing: No Difficulty Paying Gas/Electric Bills: No Difficulty Paying for Meds: No Currently Unemployed: No Education: Master's Degree or Higher Difficulty w/ Childcare or Family Care: No Living arrangements: with family Spiritual care concerns: No Anes - Eval Final PreProcedure Day of Procedure 12/30/22 13:28 Patient weight: obese Heart: regular rate and rhythm Lungs: clear to auscultation Airway: Mallampati scale class II Neurological: alert and oriented Last oral intake: >/= 8 hours ASA classification: II Emergent: no Anesthetic plan: proceed Anesthesia type and monitoring: general GIVS and standard monitoring Results Review: All pre-operative results and documents have been reviewed as part of the pre-operative evaluation. Informed Consent: The patient's anesthetic plan and its attendant risks and benefits were discussed with the patient/family/POA. Questions were solicited and answers provided to the satisfaction of the patient/family/POA.
--- NOTE | 2022-12-30 14:26 | SUR.OPER ---
IUD REMOVED LAPAROSCOPICALLY PER DR. SOTO. IUD INTACT.
--- NOTE | 2022-12-30 14:35 | W.PM.PROC2 ---
Procedure Note - Detailed Date of Procedure 12/30/22 Pre-op Diagnosis malpositioned IUD Post-op Diagnosis Same Procedure Performed Diagnostic hysteroscopy laparoscopic removal of IUD Surgeon Tracey Kraft MD Anesthesia General ( converted to general after hysteroscopy) and MAC Findings uterus sounds to 8cm and appears grossly normal without evidence of IUD laparoscopic findings show the tubes, ovaries, and uterus to be grossly normal and the IUD to in the cul-de-sac Description of Procedure The patient is taken to the operating room and placed under anesthesia in the dorsal lithotomy position. She was prepped and draped in the usual sterile fashion for hysteroscopy and laparoscopy. [place] speculum was placed in the vagina and the cervix grasped on the anterior lip with a tenaculum. Uterus is sounded to 8cm. Hysteroscope was placed and no IUD is identified. The hysteroscope is removed. The acorn manipulator was placed and the speculum was removed. The bladder was drained with a red rubber catheter. The patient was then placed under general anesthesia and the case was converted to a laparoscopy. A vertical skin incision was made at the base of the umbilicus. The abdomen is tented and the Veress needle placed. Water drop test is normal. Opening patient pressure is 6mmHg however it quickly went [id number]. The Veress needle was removed and the long Veress needle placed. Water drop test is normal and opening patient pressure was 7mmHg. Pneumoperitoneum was obtained to a patient pressure of 15mmHg. The Veress needle was removed the 5mm trocar was placed. The short trocar was too short and long 5mm trocar was required. A horizontal skin incision was made above the symphysis pubis in the midline approximately 2cm. The 5mm trocars placed under direct visualization. No IUD was visible upon inspecting the surface of the bowel and patient was then placed in Trendelenburg. The uterus was manipulated anteriorly and using the atraumatic grasper as a probe the right tube and ovary are brought out of the cul-de-sac and a piece of IUD is visualized immediately. The IUD was then grasped and removed easily without any attachments noted. The IUD was pulled through the lower trocar and discarded. The instruments are removed and pneumoperitoneum reduced. Skin incisions are closed using 4-0 nylon. Sponge, needle, and instrument counts are correct per the OR staff. The patient was awakened from anesthesia and taken to recovery in stable condition. Estimated Blood Loss 5 Drains No Packing No Pathology Other ( IUD was intact and discarded) Complications No immediate complications Condition Stable Disposition PACU
[2022-12-30] MEDS: fentaNYL CITRATE INJ (*CRX) 100 MCG/2 ML VIAL 25 MCG IV PUSH ×2 (14:53→14:59)
[2022-12-30] MEDS: oxyCODONE HCL (*CRX) 5 MG TAB IR PO (15:51)
== END 2022-12-30 16:45 | disposition home or self-care (01) ==
PROVIDERS: Anesthesiology; Visit Provider Obstetrics & Gynecology Gynecology
PROC: 0UDB8ZZ Extraction of Endometrium, Via Natural or Artificial Opening Endoscopic (ICD-10-PCS; CPT 58558; principal; 2022-12-30 14:30)
DX: T83.32XA Displacement of intrauterine contraceptive device, initial encounter (principal); Y84.9 Medical procedure, unspecified as the cause of abnormal reaction of the patient, or of later complication, without mention of misadventure at the time of the procedure; D64.9 Anemia, unspecified; F41.9 Anxiety disorder, unspecified; F32.A Depression, unspecified; E66.9 Obesity, unspecified; Z68.36 Body mass index [BMI] 36.0-36.9, adult
CPT/HCPCS: 49329; 36415; 85014; 85018; A9270; J0330; J1100; J1885; J2250; J2405; J2704; J2710; J3010; J7120

== ENCOUNTER 2024-02-04 12:30 | Outpatient (RCR) | payer BC, SELFPAY ==
--- NOTE | 2023-12-19 16:34 | OPREHPOC ---
Outpatient Therapy Plan of Care This is a Multidisciplinary Plan of Care that may contain components documented by all disciplines (PT, OT, and ST.) PT Problem 1 PT Problem #1 Knowledge Deficit PT Goal 1 Goal [place] with HEP Target Visit 4 PT Goal 1 Goal Patient will improve jaw opening to 50 mm plus to improve TMJ glide Target Visit 8 PT Problem 3 PT Problem #3 Impaired Range of Motion PT Goal 1 Goal Demonstrate 75+ degrees of panda cervical rotation for improve facet glide and reduced upper trapezius restriction PT Goal 2 Goal Demonstrate 35+ degrees of cervical flexion to reduce upper trapezius restriction Target Visit 8 PT Problem 4 PT Problem #4 Impaired Strength PT Goal 1 Goal Improve R flexion strength without upper trapezius compensation for improve functional lifting Target Visit 8 PT Goal 2 Goal Demonstrate no adductor limitation to reduce asymmetrical pelvic pull with ADL and ambulation Target Visit 8
--- NOTE | 2023-12-19 16:34 | PTOPEVAL1 ---
Assessment and note entered by Wayne Boyce, PT Evaluation Information Assessment Status Evaluation Diagnosis Right Jaw dislocation and pain, Right shoulder pain, bilateral knee pain Onset October 2023 Subjective Information Reports that she has always had a pop in her jaw but it is recently more frequently and with more activity outside of chewing. 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 She currently has a sinus infection which she is going to get treated for. She denies any issues of not being able to open or close her jaw. Reports that she believes she may have had increased problems starting with . Shoulder has been bothering her for about a month. She gets most of her pain reaching behind her back. Feels reaching away from her body is okay. 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 Denies any radiating pain at this time. Knees have been hurting since pre-. Pain is mostly medial. Reported Pain Level Pain Score 0: Self Report Assessment PT Clinical Summary Patient presents with poor scapulohumeral rhythm with increased strain on right upper trapezius with compensation. TMJ presents with decreased gliding motion and stabilization which will be addressed through mobilization and stability training. Presents with poor lateral hip stability and panda genu valgus likely attributing to knee pain. Patient will benefit from skilled therapy to address these deficits for improved gross function and pain relief. Plan of Care Interventions Electrical Stimulation,Gait Training,Hot Pack/Cold Pack,Manual Therapy,Neuro Re-education, Therapeutic Activities,Therapeutic Exercise PT Services Indicated Yes Treatment Frequency and 2x/week for 8 weeks Duration These treatments will address the objective and functional deficits as defined above. The patient will be advanced safely and appropriately in order for the patient to progress towards his/her prior level of function. Additional exercises will be introduced and as well as a comprehensive home exercise program upon discharge, if needed, ?to ensure carryover of functional gains achieved in the clinic. This treatment plan has been reviewed and agreement upon by the patient.
--- NOTE | 2024-01-02 14:59 | PCPTNOTE ---
Patient called to cancel this date due to work schedule.
--- NOTE | 2024-01-14 16:23 | PCPTNOTE ---
Patient only wanted appointment on Friday01/13/24 therefore canceled appointment for 01/15/24.
--- NOTE | 2024-01-27 09:56 | PCPTNOTE ---
Patient called & cancelled scheduled appointment this date due to not having childcare.
--- NOTE | 2024-02-04 14:07 | PTOPDC ---
Assessment and note entered by Patricia Leavitt, PT, DPT Evaluation Information Assessment Status Discharge Diagnosis Right Jaw dislocation and pain, Right shoulder pain, bilateral knee pain Onset October 2023 Subjective Information Pt states it feels like both her jaw and shoulder are improving. She states her shoulder ROM has improved and she declined a steroid shot from her doctor. She states her ROM is about 75% back to normal, reaching behind her back is still the most limited. She states it feels like things are continuing to get better. She states the endurance of her jaw has improved but not to where she would like it. She states is getting a lot less popping when she is eating. She states she does not feel like her hip/knee pain has improved. Reported Pain Level Pain Score 0,4: Self Report Assessment PT Clinical Summary Natasha has completed 6 visits of skilled therapy. She reports improvement in her pain ratings in both her shoulder and her jaw. She demonstrates improved shoulder ROM and strength. She continues to have some knee pain with daily activities but is improving her strength. Her HEP was progressed and she plans to continue these on her own. She will be discharged from skilled therapy services at this time. Plan of Care PT Services Indicated No
== END 2024-02-05 09:17 | disposition home or self-care (01) ==
LOC: ANHGOSHPT 12:30
PROVIDERS: PCP Emergency Medicine; Visit Provider Physician Assistant Surgical
DX: M25.511 Pain in right shoulder (principal); S03.00XD Dislocation of jaw, unspecified side, subsequent encounter; M17.0 Bilateral primary osteoarthritis of knee
CPT/HCPCS: 97110; 97140; 97161; 97530

== ENCOUNTER 2024-08-30 11:34 | Emergency (ER) | payer OTHER, SELFPAY ==
[2024-08-30 11:45] VITALS: BP 118/86; PULSE 89; RESP 16; TEMP 36.3; O2SAT 97
--- NOTE | 2024-08-30 11:51 | ED.URI ---
HPI - URI/Sore Throat General Chief Complaint: Upper Respiratory Infection Stated Complaint: Strep Symptoms Time Seen by Provider: 08/30/24 12:00 Source: patient Mode of arrival: ambulatory Limitations: no limitations History of Present Illness HPI Narrative: Beata is a 33-year-old female patient presenting to the clinic today with complaints sinus congestion, sinus pressure, cough, sore throat, and postnasal drip. She reports symptoms have been going on for approximately 8-10 days. [place] as though she may have had the flu and started to improve but her symptoms got worse. States she is blowing out bright green nasal drainage. No fevers. Denies any chest pain or shortness of breath. MD elicited complaint: cough, sore throat and nasal congestion Related Data Home Medications ?Medication ?Instructions ?Recorded ?Confirmed ?Last Taken ?Type cholecalciferol (vitamin D3) 250 250 mcg PO DAILY 02/25/24 08/30/24 Unknown History mcg (10,000 unit) capsule clindamycin phosphate 1 % lotion 1 applic topical DAILY 02/25/24 08/30/24 Unknown History ivermectin 1 % topical cream 1 applic topical DAILY 02/25/24 08/30/24 Unknown History prednisone 10 mg tablet 5 mg PO Q12H 02/25/24 08/30/24 Unknown History methotrexate sodium (PF) 1 gram 10 mg subcut WEEKLY 07/26/24 08/30/24 Unknown History solution for injection folic acid 1 mg tablet 1 mg PO DAILY 08/30/24 08/30/24 Unknown History Allergies Allergy/AdvReac Type Severity Reaction Status Date / Time NSAIDS (Non-Steroidal AdvReac Mild GI upset Verified 08/30/24 11:40 Anti-Inflamma Review of Systems Review of Systems: Pertinent positives per HPI. Patient denies any fever, chills, rash, headache, visual changes, dizziness, cough, shortness of breath, chest pain, palpitations, nausea, vomiting, diarrhea, constipation, abdominal pain, or any urinary issues. [facility] Past Medical History Medical History IBS (irritable bowel syndrome) Migraine Arthritis Encounter for IUD removal Laproscopic 12/2022 (normal spontaneous vaginal delivery) Anemia Psoriasis Depression Anxiety Surgical History Surgical History History of tonsillectomy Family History Family History Father Alcoholism Grandparent Cancer Diabetes mellitus Social History Social History Smoking status: Never smoker Alcohol intake: current Alcohol use details: maybe once a month Substance use: never Substance use type: does not use Do You Feel Safe in your Home?: Yes Lack of Transportation: No Lack of Food: Never True Current Housing: I Have Housing Concerned About Future Housing: No Difficulty Paying Gas/Electric Bills: No Difficulty Paying for Meds: No Currently Unemployed: No Education: Master's Degree or Higher Difficulty w/ Childcare or Family Care: No Living arrangements: with family Spiritual care concerns: No Comments At the time of my signature, I reviewed and agree with the nursing past medical, surgical, social, and family history. There is no relevant family history pertinent to the patient complaint. Exam Narrative: General: Well-developed, obese, in no apparent distress Head: Normocephalic, atraumatic Eyes: Pupils equally round and reactive to light bilaterally, EOM intact, sclera and conjunctive clear, no discharge, lids normal Ears: TMs intact and congested, ear canals clear, no drainage, grossly hearing normal. Nose: Nares patent, green nasal discharge, severe inflammation to the right nare, moderate inflammation to the left nare, maxillary sinus tenderness. Mouth: Oral pharynx red without lesions or masses, good dentition, MMM. PND Neck: Supple, trachea midline, no enlargement of anterior or posterior cervical nodes, no thyroid masses or goiter palpable. Cardio: Regular rate and rhythm, s1 and s2 normal, no murmur appreciated. Resp: Clear to auscultation bilaterally, no rhonchi, rales, wheezing or rubs Course Course Emergency Course: Portions of this record may have been created with voice recognition software. Level of Care: Express Care Visit Vital Signs Vital signs: Vital Signs Temperature 36.3 C L 08/30/24 11:45 Pulse Rate 89 08/30/24 11:45 Respiratory Rate 16 08/30/24 11:45 Blood Pressure 118/86 08/30/24 11:45 Pulse Oximetry 97 08/30/24 11:45 Temperature 36.3 C L 08/30/24 11:45 Pulse Rate 89 08/30/24 11:45 Respiratory Rate 16 08/30/24 11:45 Blood Pressure 118/86 08/30/24 11:45 Pulse Oximetry 97 08/30/24 11:45 Vital signs reviewed MDM - URI/Sore Throat MDM Narrative Medical decision making narrative: At the time of visit patient is resting comfortably on the exam table. Patient appears to be nontoxic. Plan: I suspect patient has acute bacterial rhinosinusitis. Prescription for doxycycline, prednisone, and Diflucan was sent to the pharmacy. Supportive measures were discussed with the patient and they voiced understanding discharge instructions and agrees to treatment plan. Return precautions reviewed Differential Diagnosis Differential diagnosis: Likely upper respiratory infection, otitis media, sinusitis, viral infection, bronchitis, influenza, pharyngitis and other (COVID) Discharge Plan Discharge Clinical Impression: Acute bacterial rhinosinusitis Patient Disposition: Home, Self-Care Condition: Stable Instructions: Antibiotic Form, Rhinosinusitis (ED) Additional Instructions: Take prescription medications only as prescribed-doxycycline, prednisone, and Diflucan Increase fluids and stay well hydrated Tylenol/motrin for pain/fever Flonase and OTC antihistamines as directed Vicks vapor rub to open sinuses Sinus rinses for congestion Cepacol spray, cough drops, throat lozenges, warm tea with honey/lemon, gargle salt water to soothe throat BRAT diet for diarrhea Clear liquids x 24 hours then advance as tolerated for nausea/vomiting Go to the ED if you develop a worsening in your condition- high fever not controlled by Tylenol or Motrin, dehydration, weakness, lethargy, shortness of breath, or chest pain. Follow up with your PCP in 3-5 days if symptoms persist. Patient Language: Egyptian Prescriptions: New prednisone 20 mg tablet 40 mg PO DAILY 5 Days Qty: 10 0RF doxycycline monohydrate 100 mg capsule 100 mg PO BID 10 Days Qty: 20 0RF fluconazole 150 mg tablet 150 mg PO ONCE Qty: 2 0RF Rx Instructions: as a single dose. May repeat in 72 hours if needed. No Action folic acid 1 mg tablet 1 mg PO DAILY prednisone 10 mg tablet 5 mg PO Q12H ivermectin 1 % cream 1 applic topical DAILY clindamycin phosphate 1 % lotion 1 applic topical DAILY cholecalciferol (vitamin D3) 250 mcg (10,000 unit) capsule 250 mcg PO DAILY methotrexate sodium (PF) 1 gram recon soln 10 mg subcut WEEKLY hyoscyamine sulfate [Levsin] 0.125 mg tablet 0.125 mg PO BID 90 Days Qty: 180 3RF sumatriptan succinate 100 mg tablet See Rx Instructions PO .COMPLEX Qty: 10 3RF Rx Instructions: take 1 tab at onset of headache; if no relief, may repeat 1 tab after at least 2 hrs; max = 2 tabs/24 hrs PO Ubrelvy 50 mg tablet 50 mg PO ONCE PRN (Reason: migraine headache) Qty: 14 0RF Rx Instructions: as a single dose; may repeat once in >=2 hours after first dose if needed bupropion HCl [Wellbutrin XL] 300 mg tablet extended release 24 hr 300 mg PO QAM Qty: 90 1RF escitalopram oxalate 10 mg tablet 10 mg PO DAILY Qty: 90 3RF lisdexamfetamine [Vyvanse] 20 mg capsule 20 mg PO DAILY Qty: 30 0RF Lo Loestrin Fe 1 mg-10 mcg (24)/10 mcg (2) tablet 1 tablet PO DAILY Qty: 140 2RF Follow-up/Referrals: PHYSICIAN,CERTIFIED INCOME TAX PREPARER [Primary Care Provider] - Time of Disposition: 11:55 Quality NIHSS Nursing Documentation ED NIHSS nursing documentation: reviewed/agree
== END 2024-08-30 12:00 | disposition home or self-care (01) ==
PROVIDERS: Emergency Provider Nurse Practitioner Family
DX: J01.90 Acute sinusitis, unspecified (principal); M19.90 Unspecified osteoarthritis, unspecified site; L40.9 Psoriasis, unspecified; F41.9 Anxiety disorder, unspecified; F32.A Depression, unspecified
CPT/HCPCS: 99213; G0463

== ENCOUNTER 2024-09-17 17:11 | Emergency (ER) | payer OTHER, SELFPAY ==
--- NOTE | 2024-09-17 17:12 | ED_ITS ---
HPI - Nausea/Vomiting/Diarrhea General Chief complaint: Nausea/Vomiting/Diarrhea Stated complaint: VOMITING/DIARRHEA/FEVER Time Seen by Provider: 09/17/24 17:12 Source: patient Mode of arrival: ambulatory Limitations: no limitations History of Present Illness HPI Narrative: Patient is a 33-year-old female who presents with vomiting and diarrhea for 2 days. Last vomiting was yesterday. Patient still having diarrhea today. Patient has also had fever of 103 yesterday and took Tylenol. States she has still been able to the keep fluids down. Related Data Home Medications ?Medication ?Instructions ?Recorded ?Confirmed ?Last Taken ?Type clindamycin phosphate 1 % lotion 1 applic topical DAILY 02/25/24 09/17/24 Unknown History ivermectin 1 % topical cream 1 applic topical DAILY 02/25/24 09/17/24 Unknown History prednisone 10 mg tablet 5 mg PO Q12H 02/25/24 09/17/24 Unknown History methotrexate sodium (PF) 1 gram 10 mg subcut WEEKLY 07/26/24 09/17/24 Unknown History solution for injection folic acid 1 mg tablet 1 mg PO DAILY 08/30/24 09/17/24 Unknown History Allergies Allergy/AdvReac Type Severity Reaction Status Date / Time NSAIDS (Non-Steroidal AdvReac Mild GI upset Verified 09/17/24 17:18 Anti-Inflamma Review of Systems Review of Systems: All systems reviewed & are unremarkable except as noted in HPI and below Constitutional: Constitutional: Denies body ache(s), Denies chills, Denies fatigue, Reports fever(s), Denies headache(s), Denies malaise and Denies weakness Eyes: Eyes: Denies blurry vision, Denies irritation and Denies loss of vision ENT: Denies otalgia, Denies headache(s), Denies nasal discharge, Denies sinus pain and Denies sore throat Cardiovascular: Cardiovascular: Denies chest pain, Denies irregular heart rhythm and Denies dyspnea Respiratory: Respiratory: Denies dyspnea Gastrointestinal: Gastrointestinal: Denies abdominal pain, Denies melena, Denies hematochezia, Reports diarrhea, Reports nausea and Reports vomiting Musculoskeletal: Musculoskeletal: Denies back pain, Denies myalgias and Denies arthralgias Integumentary/Breasts: Skin/Breast: Denies pruritus and Denies rash Neurologic: Denies headache(s), Denies loss of vision and Denies weakness Psychiatric: Psychiatric: Reports no additional psychiatric complaints Endocrine: Endocrine: Denies fatigue PMFSH Past Medical History Medical History Iron deficiency Psoriatic arthritis (~05/2024) IBS (irritable bowel syndrome) Migraine Arthritis Encounter for IUD removal Laproscopic 12/2022 (normal spontaneous vaginal delivery) Anemia Psoriasis Depression Anxiety Surgical History Surgical History History of tonsillectomy Family History Family History Father Alcoholism Grandparent Cancer Diabetes mellitus Social History Social History Smoking status: Never smoker Alcohol intake: current Alcohol use details: maybe once a month Substance use: never Substance use type: does not use Do You Feel Safe in your Home?: Yes Lack of Transportation: No Lack of Food: Never True Current Housing: I Have Housing Concerned About Future Housing: No Difficulty Paying Gas/Electric Bills: No Difficulty Paying for Meds: No Currently Unemployed: No Education: Master's Degree or Higher Difficulty w/ Childcare or Family Care: No Living arrangements: with family Spiritual care concerns: No Comments At time of signature, agree with nursing past medical, surgical, social and family history. There is no relevant family history pertinent to the presenting complaint. Exam Const: General: cooperative, healthy appearing, comfortable, no acute distress and well nourished Nutritional Appearance: well nourished Orientation/consciousness: patient oriented x3 Limitations: no limitations HENMT: Head: normal to inspection, normocephalic and atraumatic Ears: hearing grossly normal bilaterally and external ears normal Face/Nose/Sinus: Normal external nose present, normal facial exam and face symmetric Face and sinus: normal facial exam and face symmetric Mouth: Yes lip normal Eyes: General: appearance normal, both eyes and all related structures Alignment and Position: alignment normal and position normal Periorbital: periorbital findings normal Eyelids: eyelids normal Pupils: Equal, round and reactive pupils present EOM: EOMs intact bilaterally Neck: Neck: normal visual inspection, full ROM and supple Chest: Chest palpation & inspection: normal inspection of the chest Resp: Effort & Inspection: normal respiratory effort and able to speak in complete sentences Auscultation: clear to auscultation bilaterally Cardio: Rate: tachycardic Rhythm: regular rhythm Heart sounds: S1 normal heart sound present and S2 normal heart sound present GI: Inspection: normal to inspection GI Palp: No abdominal tenderness, Yes Soft to palpation and No Tenderness to palpation present (GI) Auscultation: normal bowel sounds Skin: General skin exam: normal color and no rashes or lesions noted Neuro: General: patient oriented x3 and moves all extremities Cranial nerves: Yes Equal, round and reactive pupils present Speech: normal speech Gait exam (Neuro): Normal gait present Extrem: General: normal to inspection, full ROM and no edema Psych: Appearance: grossly normal and well kempt Mental Status: mental status grossly normal Speech and movement: Normal speech and movement present Affect: normal affect Attitude: cooperative Thought process: Normal thought process present Course Course Emergency Course: Patient is aware of diagnosis, understands and agrees to treatment plan. Anticipatory guidance given. Patient agrees to follow-up as directed and is aware of reasons to seek care at the emergency department. Portions of this record may have been created with voice recognition software Level of Care: Express Care Visit Vital Signs Vital signs: Vital Signs Temperature 36.6 C 09/17/24 17:30 Pulse Rate 116 H 09/17/24 17:30 Respiratory Rate 16 09/17/24 17:30 Blood Pressure 104/76 09/17/24 17:30 Pulse Oximetry 100 09/17/24 17:30 Temperature 36.6 C 09/17/24 17:30 Pulse Rate 116 H 09/17/24 17:30 Respiratory Rate 16 09/17/24 17:30 Blood Pressure 104/76 09/17/24 17:30 Pulse Oximetry 100 09/17/24 17:30 Reviewed MDM - Nausea/Vomiting/Diarrhea MDM Narrative Medical decision making narrative: Pt well hydrated appearing, in no respiratory distress, hemodynamically stable. Recommend supportive care. The patient is stable at time of discharge the clinical impression was discussed and the patient was given the opportunity to ask questions, which were addressed as completely as possible given the information available at present. Anticipatory guidance and return to care precautions were discussed and the importance of primary care follow-up was stressed and encouraged. The patient voiced understanding of the plan, indications to return, and the need for follow-up. Exam findings show no acute concerns or changes Patient is appropriate for outpatient treatment and follow-up. Differential Diagnosis Differential diagnosis: Likely traveler's diarrhea, food poisoning, gastroenteritis, drug-induced nausea and vomiting and dehydration Medical Records Attestation: I reviewed the patient's medical records. Lab Data Attestation: I reviewed the patient's lab results. Labs: Lab Results 09/17/24 Range/Units 17:36 POC Influenza A Ag Negative (Negative) POC Influenza B Ag Negative (Negative) POC SARS CoV-2 Ag Negative (Negative) Discharge Plan Discharge Clinical Impression: Gastroenteritis Patient Disposition: Home, Self-Care Condition: Stable Instructions: Gastroenteritis (ED) Additional Instructions: You are negative for COVID and flu Stay hydrated. Take small sips of fluid containing electrolytes frequently(Body [place], Gatorade, Powerade, liquid IV). Eat small meals that her very bland including bananas, applesauce, rice, toast, boiled or grilled chicken, soup. Do not eat anything fried, spicy or overly acidic. After having diarrhea for 3 days, you can start taking [id number] Imodium. You should go to the hospital if you experience return of persistent nausea and vomiting that does not resolve and does not allow you to tolerate any food or fluids, persistent fevers for greater than 2-3 more days, increasing abdominal pain that persists despite medications, persistent diarrhea, dizziness, syncope (fainting), or for any other concerns. Patient Language: Mont[place]erratian Prescriptions: New dicyclomine 20 mg tablet 20 mg PO QID 7 Days Qty: 28 0RF ondansetron 4 mg tablet,disintegrating 4 mg PO Q6-8H PRN (Reason: nausea and vomiting) Qty: 7 0RF No Action folic acid 1 mg tablet 1 mg PO DAILY prednisone 10 mg tablet 5 mg PO Q12H ivermectin 1 % cream 1 applic topical DAILY clindamycin phosphate 1 % lotion 1 applic topical DAILY methotrexate sodium (PF) 1 gram recon soln 10 mg subcut WEEKLY hyoscyamine sulfate [Levsin] 0.125 mg tablet 0.125 mg PO BID 90 Days Qty: 180 3RF sumatriptan succinate 100 mg tablet See Rx Instructions PO .COMPLEX Qty: 10 3RF Rx Instructions: take 1 tab at onset of headache; if no relief, may repeat 1 tab after at least 2 hrs; max = 2 tabs/24 hrs PO Ubrelvy 50 mg tablet 50 mg PO ONCE PRN (Reason: migraine headache) Qty: 14 0RF Rx Instructions: as a single dose; may repeat once in >=2 hours after first dose if needed bupropion HCl [Wellbutrin XL] 300 mg tablet extended release 24 hr 300 mg PO QAM Qty: 90 1RF escitalopram oxalate 10 mg tablet 10 mg PO DAILY Qty: 90 3RF lisdexamfetamine [Vyvanse] 20 mg capsule 20 mg PO DAILY Qty: 30 0RF Lo Loestrin Fe 1 mg-10 mcg (24)/10 mcg (2) tablet 1 tablet PO DAILY Qty: 140 2RF Follow-up/Referrals: Rosi Davis [employer] OFFICER-C [Primary Care Provider] - 3 Days Stand Alone Forms: Work/School Release IP Time of Disposition: 17:51
[2024-09-17 17:30] VITALS: BP 104/76; PULSE 116; RESP 16; TEMP 36.6; O2SAT 100
[2024-09-17 17:39] LABS: EDCOVIDSCREEN Negative (Negative); EDINFLUASCREEN Negative (Negative); EDINFLUBSCREEN Negative (Negative)
== END 2024-09-17 17:55 | disposition home or self-care (01) ==
PROVIDERS: Emergency Provider Nurse Practitioner Family; PCP Nurse Practitioner
DX: K52.9 Noninfective gastroenteritis and colitis, unspecified (principal); Z20.822 Contact with and (suspected) exposure to COVID-19; E61.1 Iron deficiency; L40.9 Psoriasis, unspecified; L40.50 Arthropathic psoriasis, unspecified; D64.9 Anemia, unspecified
CPT/HCPCS: 87426; 87804; 99213; G0463